=== PATIENT | female | born 1980 | race Caucasian/White ===

== ENCOUNTER 2025-04-07 11:36 | Inpatient (IN) | payer OTHER, BC, MEDICAID, SELFPAY ==
[2025-04-07 11:37] VITALS: BP 168/97; PULSE 100; RESP 17; TEMP 36.9; O2SAT 97; BMI 27.4
--- NOTE | 2025-04-07 11:40 | ECG_ITS ---
[facility]: 2025-04-07 Pat Name: Ayana Norris Department: Room: Gender: Female Risk Manager: : 1980 Requested By: Concha Hernandez Order Number: [id number] Yeny MD: AIMEE LEE Measurements Intervals [place] Rate: 94 P: 24 [place]: 142 QRS: 27 QRSD: 88 T: 34 QT: 369 QTc: 462 Interpretive Statements SINUS RHYTHM No previous ECG available for comparison Electronically Signed On 04-08-2025 20:13:24 CDT by AIMEE LEE [email or web address]
--- NOTE | 2025-04-07 11:48 | W.ED.PSYCHS ---
HPI - Psych General: Chief Complaint: Psychiatric Symptoms Stated Complaint: SI w/a plan Time Seen by Provider: 04/07/25 11:37 History of Present Illness: 44-year-old female with a history of depression who presents emergency room by ambulance with depression and suicidal thoughts. She said she has chronic suicidal thoughts and follows with a therapist in [place]. Says recently she has been feeling more of a dark cloud and feels like she just does not want to be here anymore. She has no specific suicidal plan but she does endorse that she feels suicidal. This is made particularly worse by Ativan at home. Apparently her daughter was unhappy with their living situation and the police were called and the oncology social work came to the house because they allegedly did not have enough money for food. She says she wakes up screaming and crying. She is hoping to be admitted as an inpatient. Related Data Home Medications ?Medication ?Instructions ?Recorded ?Confirmed alprazolam 0.25 mg tablet See Rx Instructions .Route .COMPLEX 04/07/25 04/07/25 buspirone 15 mg tablet 15 mg PO BID 04/07/25 04/07/25 gabapentin 100 mg capsule 200 mg PO BID 04/07/25 04/07/25 icosapent ethyl 1 gram capsule 2 g PO BID 04/07/25 04/07/25 insulin regular hum U-500 conc 500 See Rx Instructions .Route .COMPLEX 04/07/25 04/07/25 unit/mL(3 mL) subcut pen (Humulin R U-500 (Conc) Insulin Kwikpen) lisinopril 5 mg tablet 5 mg PO DAILY 04/07/25 04/07/25 rosuvastatin 20 mg tablet 20 mg PO DAILY 04/07/25 04/07/25 venlafaxine 75 mg capsule,extended 75 mg PO QAM 04/07/25 04/07/25 release 24 hr zolpidem 5 mg tablet 5 mg PO BEDTIME insomnia 04/07/25 04/07/25 Review of Systems Narrative: Constitutional symptoms: Negative except as documented in HPI. Skin symptoms: Negative except as documented in HPI. Eye symptoms: Negative except as documented in HPI. ENMT symptoms: Negative except as documented in HPI. Respiratory symptoms: Negative except as documented in HPI. Cardiovascular symptoms: Negative except as documented in HPI. Gastrointestinal symptoms: Negative except as documented in HPI. Genitourinary symptoms: Negative except as documented in HPI. Musculoskeletal symptoms: Negative except as documented in HPI. Neurologic symptoms: Negative except as documented in HPI. Psychiatric symptoms: Negative except as documented in HPI. Endocrine symptoms: Negative except as documented in HPI. Physical Exam Narrative: EXAM NARRATIVE: General: Alert, no acute distress. Skin: Warm, dry. Head: Normocephalic, atraumatic. Neck: Supple, trachea midline. Eye: Extraocular movements are intact. Ears, nose, mouth and throat: mucosa moist. Cardiovascular: Regular, Normal peripheral perfusion. Respiratory: Lungs are clear to auscultation, respirations are non-labored, breath sounds are equal, Symmetrical chest wall expansion. Gastrointestinal: Soft, Nontender, Non distended Musculoskeletal: Normal ROM, no deformity. Neurological: Alert and oriented, No focal neurological deficit observed. Psychiatric: Cooperative, patient is tearful, endorses suicidal ideation Course Vital Signs: Vital signs: Vital Signs Temperature 98.6 F 04/07/25 14:00 Pulse Rate 88 04/07/25 14:00 Respiratory Rate 16 04/07/25 14:00 Blood Pressure 145/74 04/07/25 14:00 Pulse Oximetry 98 04/07/25 14:00 Oxygen Delivery Me thod Room Air 04/07/25 14:00 MDM - Psych Medical Decision Making Differential diagnosis: Patient with reported depression and suicidal ideation. concerns for infection, alcohol intoxication, cardiac issues or other medical problems prior to psychiatric admission. Workup: labwork, ekg ordered to evaluate the pathologies and to clear the patient medically prior to psychiatric admission Lab Review: Laboratory results were reviewed and interpreted by myself the emergency room physician. - Medically cleared. - EKG shows no ischemic changes. - Blood alcohol level is negative, -Tylenol and salicylate levels are negative. - Drug screen is negative - No signs of infection, urinalysis clear and white count is not elevated - No anemia. - BUN and creatinine are within normal limits. Consultation: I spoke with Dr. Licea who is on-call for the psychiatry service who agrees to admission. Assessment and plan: Depression Suicidal ideation -Admission to neuropsychiatric unit for continued evaluation and treatment. - All lab work was reviewed and interpreted personally by myself, the ER physician - Evaluation and treatment of this problem were appropriate in the emergency setting Lab Data 04/07/25 12:41 04/07/25 12:41 Laboratory Results HCG, Qual Negative (Negative) 04/07/25 11:56 Urine Color Yellow (Yellow) 04/07/25 11:56 Urine Appearance Clear (CLEAR) 04/07/25 11:56 Urine pH 5.5 (5-7) 04/07/25 11:56 Ur Specific Fay 1.024 (1.005-1.030) 04/07/25 11:56 Urine Protein 1+ (Negative) A 04/07/25 11:56 Urine Glucose (UA) 3+ (Normal) H 04/07/25 11:56 Urine Ketones 1+ (Negative) H 04/07/25 11:56 Urine Blood Negative (Negative) 04/07/25 11:56 Urine Nitrate Negative (Negative) 04/07/25 11:56 Urine Bilirubin Negative (Negative) 04/07/25 11:56 Urine Urobilinogen 1.0 mg/dL (Negative) 04/07/25 11:56 Ur Leukocyte Esterase Negative (Negative) 04/07/25 11:56 Urine RBC 0-2 /hpf (0-2) 04/07/25 11:56 Urine WBC 0-5 /hpf (0-5) 04/07/25 11:56 Ur Squamous Epith Cells 11-20 /hpf (0-5) H 04/07/25 11:56 Amorphous Sediment Not Reportable 04/07/25 11:56 Urine Bacteria None seen /hpf (NONE) 04/07/25 11:56 Hyaline Casts 6.61 /lpf 04/07/25 11:56 Urine Opiates Screen Negative ng/mL (Negative) 04/07/25 11:56 Ur Barbiturates Screen Negative ng/mL (Negative) 04/07/25 11:56 Ur Phencyclidine Scrn Negative ng/mL (Negative) 04/07/25 11:56 Ur Amphetamines Screen Negative ng/mL (Negative) 04/07/25 11:56 U Benzodiazepines Scrn Negative ng/mL (Negative) 04/07/25 11:56 Urine Cocaine Screen Negative ng/mL (Negative) 04/07/25 11:56 U Marijuana (THC) Screen Negative ng/mL (Negative) 04/07/25 11:56 No radiology studies performed this visit Discharge Plan Discharge Patient Disposition: Admitted As Inpatient Admit Provider: Tej Licea Clinical Impression: Suicidal ideation, Depression Condition: Stable Coding Level of Care Code ED Designer/Writer for Katelyn Downing
[2025-04-07 12:07] LABS: Glucose Urine UA 3+ (Normal); Nitrate Urine Negative (Negative); Specific Gravity, Urine 1.024 (1.005-1.030)
[2025-04-07 12:09] LABS: Add Urine Microscopic? YES
[2025-04-07 12:14] LABS: PCP Screen Urine Negative (Negative)
[2025-04-07 12:19] LABS: HCG Qualitative Urine. Negative (Negative)
--- NOTE | 2025-04-07 12:19 | PC.NURSE ---
Involuntary 96 hour hold rights read and reviewed with patient. Daphney from security present during reading of rights. Patient verbalized understandings and copy of rights given to patient.
[2025-04-07 12:50] LABS: Hematocrit 40.0 % (36-47); Hemoglobin 13.40 g/dL (11.27-16.99); Mean Corpuscular HGB Conc 33.5 g/dL (30-55); Mean Corpuscular Hemoglobin 29.3 pg (27-33); Mean Corpuscular Volume 87.3 fl (85-98); Nucleated Red Blood Cells % 0 %; Platelet Count 265 10^3/cmm (157-399); Red Blood Count 4.58 10^6/uL (3.85-5.65); White Blood Count 9.59 10^3/uL (3.29-11.43)
[2025-04-07 13:14] VITALS: BP 148/88; PULSE 99; RESP 16; TEMP 36.9; O2SAT 97
[2025-04-07 13:24] LABS: Alanine Aminotransferase 42 U/L (0-33); Albumin Level 3.9 g/dL (3.5-5.2); Alkaline Phosphatase 53 U/L (35-105); Anion Gap 22.7 (5-19); Aspartate Amino Transferase 36 U/L (0-32); Blood Urea Nitrogen 8 mg/dL (6-20); Calcium 8.9 mg/dL (8.5-10.5); Carbon Dioxide 21 mmol/L (22-29); Chloride 97 mmol/L (98-107); Creatinine Clr Calc Pharmacy 148.9936; Globulin 3.1 g/dL (1.3-4.6); Glucose 325 mg/dL (65-115); Osmolality Calculated 293 mOsm/kg (285-295); Potassium 4.7 mmol/L (3.5-5.1); Sodium 136 mmol/L (136-145); Thyroid Stimulating Hormone 1.34 uIU/mL (0.27-4.20); Total Protein 7.0 g/dL (6.6-8.7)
[2025-04-07 13:39] LABS: Acetaminophen < 5.0 ug/mL (10-30); Alcohol Level < 10 mg/dL (0-10); Salicylate < 0.3 mg/dL (3-10)
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
[2025-04-07 14:00] VITALS: BP 145/74; PULSE 88; RESP 16; TEMP 37; O2SAT 98
[2025-04-07] MEDS: blistex lip oint 7 gm Tube 1 APPLIC TOPICAL (14:16)
[2025-04-07] MEDS: insulin regular-human 100 units/1 mL 100 UNIT SUBCUT (16:46)
[2025-04-07 20:55] VITALS: BP 138/87; PULSE 106; RESP 18; TEMP 36.9; O2SAT 98
[2025-04-08 06:00] VITALS: BP 137/89; PULSE 100; RESP 18; TEMP 36.6; O2SAT 98
[2025-04-08] MEDS: venlafaxine ER (24HR) 75 mg Capsule PO (06:41)
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
--- NOTE | 2025-04-08 08:45 | PC.NURSE ---
Verified with patient that her last insulin dosing was yesterday. She states she takes it as needed and not routinely. When discussing sliding scale insulin she states that she doesn't understand it and it does not work for her.
[2025-04-08] MEDS: insulin regular-human 100 units/1 mL 100 UNIT SUBCUT (11:09)
[2025-04-08 14:00] VITALS: BP 137/88; PULSE 102; RESP 16; TEMP 36.6; O2SAT 97
--- NOTE | 2025-04-08 19:14 | PM.CONSULT ---
Providers/Reason For Consult Consulting Physician/Specialty*: Hospitalist Reason for Consult*: Diabetes management Requesting Physician: Dr. Licea Attending Physician: Tej Licea MD Primary Care Provider: Unknown History of Present Illness History of Present Illness Ayana Norris is a 44 year old female with type 2 diabetes mellitus. She states that she has been inconsistent taking her insulin. 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 She tells me that she has a glucose monitor and it usually runs high. She states that she eats a lot of carbs at home and snacks a lot. She has depression and she admitted herself to the psychiatric unit to obtain help. She is very interested in also getting help for diabetes. She reports that she already has neuropathy and takes medications for it Past most medical history is significant for type 2 diabetes mellitus depression and anxiety hypertension and hypercholesterolemia Social history patient lives with she denies tobacco Review of Systems Const: Denies: fever(s) or chills Eyes: Denies: change in vision ENMT: Denies: throat pain or nasal congestion Card: Denies: chest pain or palpitations Resp: Denies: dyspnea or productive cough GI: Denies: abdominal pain, nausea, vomiting or change in stool character : Denies: dysuria Musc: Denies: back pain or extremity pain Skin/Breast: Reports: other (Few small punctate lesions not dermatomal, from cat); Denies: rash Neuro: Denies: headache(s) or dizziness Psych: Reports: depression, hopelessness, change in appetite and difficulty concentrating; Denies: anxiety Rupert/Lymph: Denies: easy bruising or easy bleeding Medications/Allergies Home Medications ?Medication ?Instructions ?Recorded ?Confirmed ?Last Taken ?Type alprazolam 0.25 mg tablet See Rx Instructions .Route .COMPLEX 04/07/25 04/07/25 Unknown History buspirone 15 mg tablet 15 mg PO BID 04/07/25 04/07/25 04/07/25 History gabapentin 100 mg capsule 200 mg PO BID 04/07/25 04/07/25 04/07/25 History icosapent ethyl 1 gram capsule 2 g PO BID 04/07/25 04/07/25 04/07/25 History insulin regular hum U-500 conc 500 See Rx Instructions .Route .COMPLEX 04/07/25 04/07/25 04/07/25 History unit/mL(3 mL) subcut pen (Humulin R U-500 (Conc) Insulin Kwikpen) lisinopril 5 mg tablet 5 mg PO DAILY 04/07/25 04/07/25 04/07/25 History rosuvastatin 20 mg tablet 20 mg PO DAILY 04/07/25 04/07/25 Unknown History venlafaxine 75 mg capsule,extended 75 mg PO QAM 04/07/25 04/07/25 04/07/25 History release 24 hr zolpidem 5 mg tablet 5 mg PO BEDTIME insomnia 04/07/25 04/07/25 04/06/25 History Allergies Allergy/AdvReac Type Severity Reaction Status Date / Time No Known Allergies Allergy Verified 04/08/25 03:35 Current Medications Generic Name Dose Route Start Last Admin Trade Name Freq PRN Reason Stop Dose Admin Buspirone HCl 15 mg 04/07/25 18:00 04/08/25 17:38 Buspirone 10 Mg Tablet PO 15 mg BID JANET Administration Camphor/Menthol/Phenol 1 applic 04/07/25 13:14 04/07/25 14:16 Blistex Lip Oint 7 Gm Tube TOPICAL 1 applic Q1H PRN Administration DRYNESS Gabapentin 200 mg 04/07/25 18:00 04/08/25 17:38 Gabapentin 100 Mg Capsule PO 200 mg BID JANET Administration Hydrocortisone 1 applic 04/07/25 22:22 04/08/25 09:08 Hydrocortisone 1% Cream 28 Gm TOPICAL 1 applic QID PRN Administration RASH Hydroxyzine Pamoate 50 mg 04/07/25 13:14 04/08/25 14:02 Hydroxyzine 25 Mg Capsule PO 50 mg Q6H PRN Administration ANXIETY Lisinopril 5 mg 04/08/25 09:00 04/08/25 08:31 Lisinopril 5 Mg Tablet PO 5 mg DAILY JANET Administration Olanzapine 5 mg 04/07/25 13:14 04/08/25 15:02 Olanzapine 5 Mg Odt PO 5 mg Q4H PRN Administration Agitation/Psychosis Venlafaxine HCl 75 mg 04/08/25 06:00 04/08/25 06:41 Venlafaxine Er (24hr) 75 Mg Capsule PO 75 mg QAM JANET Administration Zolpidem Tartrate 5 mg 04/07/25 21:00 04/07/25 22:01 Zolpidem 5 Mg Tablet PO 5 mg BEDTIME JANET Administration Additional Medication Information She tells me she stopped Rosuvastatin due to feeling lumps in her shins Vitals/I&O/Wt Last Vital Signs Temp 97.9 F 04/08/25 14:00 Pulse 102 H 04/08/25 14:00 Resp 16 04/08/25 14:00 BP 137/88 04/08/25 14:00 Pulse Ox 97 04/08/25 14:00 O2 Del Method Room Air 04/08/25 06:00 Weight last 48 hrs Weight 77.111 kg Physical Exam Narrative: Patient is alert and oriented in no acute distress at time of exam HEENT head is normocephalic atraumatic pupils equal round reactive to light and accommodation extraocular muscles are intact there is no scleral icterus neck is supple no JVD carotid bruits or lymphadenopathy mucous members are moist to pink without lesions or exudates neck is supple no JVD carotid bruits or lymphadenopathy Heart regular normal S1-S2 without murmurs clicks gallops or rub lungs clear to auscultation without wheezes rales or rhonchi Abdomen soft nontender nondistended positive bowel sounds no hepatosplenomegaly Extremities no clubbing cyanosis or edema Skin a few punctate lesions not following a dermatome. Appear to be possible bites. May be something from outdoor cat Data 04/07/25 12:41 04/07/25 12:41 A&P Assessment and plan 1. Diabetes mellitus, insulin dependent (IDDM), uncontrolled: Patient self reports that she is scheduled to take regular insulin 200 units in the morning 100 units 3 other times during the day. She states some days she takes it some days she does not. She reports that almost always her blood sugars are reading over 400 per her Dexcom. Plan: I would like to obtain a hemoglobin A1c At this time I am going to start Lantus insulin 10 units at bedtime I ordered regular insulin 25 units before every meal along with high-dose sliding scale insulin. I left explanation for the nurses in message to the nurse Will follow daily with you PDMP PDMP Reviewed: Not Reviewed Coding Level of Care Code Acute Code for Chg Fwd Diagnoses Diabetes mellitus, insulin dependent (IDDM), uncontrolled
[2025-04-08 20:26] VITALS: BP 123/77; PULSE 100; RESP 18; TEMP 36.5; O2SAT 96
[2025-04-08] MEDS: insulin glargine 100 units/1 mL 10 UNIT SUBCUT (21:04)
[2025-04-09 06:00] VITALS: BP 127/75; PULSE 91; RESP 18; TEMP 36.4; O2SAT 95
[2025-04-09] MEDS: venlafaxine ER (24HR) 75 mg Capsule PO (08:39)
[2025-04-09 12:03] LABS: Estmated Average Glucose 232; Hemoglobin A1C 9.7 % (4.0-6.0)
[2025-04-09 12:11] LABS: Thyroid Stimulating Hormone 1.12 uIU/mL (0.27-4.20)
--- NOTE | 2025-04-09 12:42 | P.PN_ITS ---
Subjective 2 Subjective: Patient feeling tired today. She is satisfied that her blood sugars are improved. She is asking for further education about her diabetes and insulin usage. Vitals/I&O/Wt Last Vital Signs Temp 97.5 F L 04/09/25 06:00 Pulse 91 04/09/25 06:00 Resp 18 04/09/25 06:00 BP 127/75 04/09/25 06:00 Pulse Ox 95 04/09/25 06:00 O2 Del Method Room Air 04/09/25 06:00 Physical Exam 2 Narrative: Heart: regular normal S1-S2 without murmurs clicks gallops or rub lungs clear to auscultation without wheezes rales or rhonchi Abdomen soft nontender nondistended positive bowel sounds no hepatosplenomegaly Extremities no clubbing cyanosis or edema Data 04/07/25 12:41 04/07/25 12:41 Other Labs: TSH normal at 1.12 Hemoglobin A1c elevated at 9.7 A&P Assessment and plan 1. Diabetes mellitus, insulin dependent (IDDM), uncontrolled: Patient self reports that she is scheduled to take regular insulin 200 units in the morning 100 units 3 other times during the day. She states some days she takes it some days she does not. She reports that almost always her blood sugars are reading over 400 per her Dexcom. Hemoglobin A1c is 9.7 with average blood sugar of approximately 240. I will increase Lantus to 15 units nightly. Continue with scheduled insulin of 25 units before meals along with high-dose sliding scale insulin since she was on 100 units with every meal prior I will order diabetic education for Friday Plan: Continue to follow with you PDMP PDMP Reviewed: Not Reviewed Attestations 2 Medical Necessity Statement*: As per primary Coding Level of Care Code Acute Code for g Fwd Diagnoses Diabetes mellitus, insulin dependent (IDDM), uncontrolled
[2025-04-09 14:00] VITALS: BP 121/80; PULSE 91; RESP 17; TEMP 36.6; O2SAT 97
[2025-04-09] MEDS: blistex lip oint 7 gm Tube 1 APPLIC TOPICAL (14:32)
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
[2025-04-09] MEDS: insulin glargine 100 units/1 mL 15 UNIT SUBCUT (21:04)
[2025-04-09 22:00] VITALS: BP 118/79; PULSE 98; RESP 19; TEMP 36.8; O2SAT 98
[2025-04-10 06:00] VITALS: BP 147/91; PULSE 98; RESP 18; TEMP 36.4; O2SAT 100; BMI 28.6
[2025-04-10] MEDS: venlafaxine ER (24HR) 75 mg Capsule PO (08:03)
--- NOTE | 2025-04-10 11:41 | P.PN_ITS ---
Subjective 2 Subjective: Patient reports she is feeling much better. She says her psychiatric medications were adjusted and she is feeling less fatigued. She states that she received education about diabetes and diet. She is already read this. Overall she is feeling much better physically as well as in regards to her diabetes. Vitals/I&O/Wt Last Vital Signs Temp 97.5 F L 04/10/25 06:00 Pulse 98 04/10/25 06:00 Resp 18 04/10/25 06:00 BP 147/91 04/10/25 06:00 Pulse Ox 100 04/10/25 06:00 O2 Del Method Room Air 04/10/25 06:00 Weight last 48 hrs Weight 80.513 kg Physical Exam 2 Narrative: Heart: regular normal S1-S2 without murmurs clicks gallops or rub lungs clear to auscultation without wheezes rales or rhonchi Abdomen soft nontender nondistended positive bowel sounds no hepatosplenomegaly Extremities no clubbing cyanosis or edema Data 04/07/25 12:41 04/07/25 12:41 Other Labs: Hemoglobin A1c 9.7 TSH 1.12 A&P Assessment and plan 1. Diabetes mellitus, insulin dependent (IDDM), uncontrolled: Patient self reports that she is scheduled to take regular insulin 200 units in the morning 100 units 3 other times during the day. She states some days she takes it some days she does not. She reports that almost always her blood sugars are reading over 400 per her Dexcom. Hemoglobin A1c is 9.7 with average blood sugar of approximately 240. Again increase Lantus now to 25 units nightly. Lantus to 15 units nightly. Continue with scheduled insulin of 25 units before meals along with high-dose sliding scale insulin. She required an additional 34 units over the scheduled 25 units. Patient will most likely require higher mealtime insulin at discharge to cover her home habits. Diabetic education and nutrition ordered for Friday. Apparently she has already received her discharge instructions on diabetic diet that she reviewed. Plan: Continue to follow with you Dr. Lema to take over my patient list and she will follow tomorrow. PDMP PDMP Reviewed: Not Reviewed Attestations 2 Medical Necessity Statement*: As per primary Coding Level of Care Code Acute Code for [facility] Fwd Diagnoses Diabetes mellitus, insulin dependent (IDDM), uncontrolled
[2025-04-10 13:18] VITALS: BP 121/73; PULSE 98; RESP 12; TEMP 36.6; O2SAT 98
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
[2025-04-10 20:27] VITALS: BP 112/72; PULSE 103; RESP 17; TEMP 37.4; O2SAT 97
[2025-04-10] MEDS: insulin glargine 100 units/1 mL 20 UNIT SUBCUT (20:49)
[2025-04-11 06:00] VITALS: BP 125/79; PULSE 91; RESP 18; TEMP 36.7; O2SAT 98
[2025-04-11] MEDS: venlafaxine ER (24HR) 75 mg Capsule PO (08:33)
--- NOTE | 2025-04-11 09:21 | NUR.SHIFT ---
Pt states that she had a lot of dreams last night. She states that her anxiety is mild and depression moderate. No reports of SI/HI or hallucinations. No pain. She is calm and cooperative on assessment. States that she wants to go home. She told Roseann DUNN that she wanted to go home, her meds weren't working anyways and she wants to see her kids.
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
[2025-04-11 13:50] VITALS: BP 122/79; PULSE 99; RESP 16; TEMP 36.6; O2SAT 99
[2025-04-11 20:04] VITALS: BP 141/91; PULSE 99; RESP 17; O2SAT 97
[2025-04-11] MEDS: insulin glargine 100 units/1 mL 20 UNIT SUBCUT (21:25)
[2025-04-12 05:11] VITALS: BP 136/89; PULSE 114; RESP 18; TEMP 36.7; O2SAT 98
[2025-04-12] MEDS: venlafaxine ER (24HR) 75 mg Capsule PO (10:18)
[2025-04-12 13:53] VITALS: BP 141/90; PULSE 89; RESP 16; TEMP 37.5; O2SAT 98
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
[2025-04-12 19:52] VITALS: BP 131/80; PULSE 90; RESP 18; TEMP 36.7; O2SAT 98
[2025-04-12] MEDS: insulin glargine 100 units/1 mL 20 UNIT SUBCUT (21:04)
--- NOTE | 2025-04-13 04:53 | PC.NURSE ---
pt rounding this nurse spoke with pt during her rounding. suggested that she find a diabetic clinic who could help her understand her diabetes better. also that if she is having issues understanding sliding scale that it would be easiest to have a print out that was easy to read and understand.
[2025-04-13 06:00] VITALS: BP 106/68; PULSE 94; RESP 16; TEMP 36.4; O2SAT 97
[2025-04-13] MEDS: venlafaxine ER (24HR) 75 mg Capsule PO (08:07)
[2025-04-13 13:44] VITALS: BP 130/80; PULSE 100; RESP 16; TEMP 36.4; O2SAT 96
[2025-04-13 16:24] VITALS: BP 130/80; PULSE 96; RESP 16; TEMP 36.4; O2SAT 100
== END 2025-04-13 16:48 | disposition home or self-care (01) | DRG 885 ==
LOC: ER 12:28 → NP 12:33
PROVIDERS: Internal Medicine; Admitting Provider Psychiatry & Neurology Psychiatry; Emergency Provider Emergency Medicine; Visit Provider Psychiatry & Neurology Psychiatry
DX: F33.2 Major depressive disorder, recurrent severe without psychotic features (principal); R45.851 Suicidal ideations; Z79.4 Long term (current) use of insulin; Z91.51 Personal history of suicidal behavior; Z81.8 Family history of other mental and behavioral disorders; E11.65 Type 2 diabetes mellitus with hyperglycemia; E66.9 Obesity, unspecified; Z68.28 Body mass index [BMI] 28.0-28.9, adult; I10 Essential (primary) hypertension; Z91.410 Personal history of adult physical and sexual abuse; Z91.411 Personal history of adult psychological abuse; E11.40 Type 2 diabetes mellitus with diabetic neuropathy, unspecified; E78.00 Pure hypercholesterolemia, unspecified; F41.1 Generalized anxiety disorder; F41.0 Panic disorder [episodic paroxysmal anxiety]
CPT/HCPCS: 36415; 36416; 80053; 80306; 80307; 81001; 81025; 82962; 83036; 84443; 85025; 93005; 96372; 97150; 97165; 99285; J1815; J9999